=== PATIENT | female | born 1945 | race Caucasian/White ===

== ENCOUNTER 2024-09-26 05:52 | Day surgery (SDC) | payer MEDICARE, OTHER, SELFPAY ==
[2024-09-13 13:51] VITALS: BMI 24.3
[2024-09-26] VITALS (23 sets, daily range): BP systolic 85–202; BP diastolic 51–88; BMI 24.3
[2024-09-26] MEDS: NSS 500 IV (06:26)
[2024-09-26 08:37] LABS: ACT-LR - POC 334 Seconds (116-155)
[2024-09-26 08:52] LABS: ACT-LR - POC 284 Seconds (116-155)
--- NOTE | 2024-09-26 09:39 | ITS.CL.ABL ---
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
Ablation
Procedure Report:
ELECTROPHYSIOLOGIC STUDY AND POSSIBLE ABLATION
DATE: September 26, 2024
Primary Care Provider: MITZI Manzanares
Primary Smearer: Julita Kyle M.D.
INDICATION:
Symptomatic Atrial Fibrillation.
Paroxysmal
HISTORY: See H and P.
Symptomatic AF, poorly controlled with attempted medical therapy.
Hypertrophic cardiomyopathy as well as baseline sinus bradycardia / sick sinus syndrome with chronotropic incompetence, both conditions limiting antiarrhythmic drug therapy.
HAS-BLED:
Age
CHADSVASc: 4
HTN
Age
F Gender
* Also with Hypertrophic Cardiomyopathy
PRESENTING RHYTHM: SR with paroxysms of AF
HISTORY: See H and P.
Symptomatic AF, poorly controlled with attempted medical therapy.
ANTICOAGULATION: Eliquis 5 mg twice daily
'TIME-OUT': called and confirmed.
SEDATION/ANESTHESIA: provided via the anesthesia department using general anesthesia.
PROCEDURE:
Ultrasound Guidance performed by oh was utilized for femoral venous Vascular Access b/l.
A decapolar CS catheter was placed within the CS for mapping and pacing.
The intracardiac ultrasound catheter was positioned in the RA for continuous intracardiac ultrasound imaging.
Heparin bolus and infusion to target ACT at 300 -350 seconds was administered. Transseptal puncture was performed. This entailed advancing a sheath with dilator into the superior vena cava and withdrawing both (monitoring intracardiac ultrasound,
fluoroscopy and tip pressure) with the tip oriented toward the atrial septum. The fossa ovalis was engaged (indicated by sudden displacement of the sheath tip as well as tenting of the fossa seen on intracardiac ultrasound).
The [employer] transseptal system was used. Left atrial catheter position was confirmed by echocardiographic imaging and fluoroscopy followed by RF delivery using the GI Track system resulting in successful LA access with pressure monitoring
demonstrating LA pressure waveforms (LA mean pressure 8 mm Hg). The sheath was advanced over the dilator and positioned in the left atrium.
The Gentronix multipolar mapping catheter was initially positioned through the transseptal sheath for high density mapping.
Geometry and voltage mapping was performed using the Vericant multipolar grid catheter. Ensite-X was utilized for three-dimensional electroanatomical mapping.
A 3-D map was created using Ensite-X in Voxel mode. A 3-D reconstructed CT image was compared to the 3-D Navex map to assist in anatomic evaluation, mapping and ablation.
The Follicum catheter and system was used for cardiac ablation. Catheter positioning was guided and confirmed using both I.C.E. and fluoroscopy.
PV isolation approach was used to electrically isolate each PV ostia (LSPV, LIPV, RSPV, RIPV).
Additional energy applications/additional ablation set was required to accomplish wide area circumferential ablation around each of the pulmonary vein sets and additionally ablation to accomplish LA posterior wall ablation.
Remapping with the Ambrocio multipolar grid catheter found that all PVPs were eliminated at each vein demonstrating entrance block. Also pacing from the multipolar mapping catheter around the the circumference of the ostia was performed at 10 ma and
2.0 msec output to assess for exit block. This demonstrated electrical isolation at each of the pulmonary vein ostia (LSPV, LIPV, RSPV, RIPV). There is also entrance and exit block at the LA posterior wall.
Programmed electrostimulation failed to induce any sustained arrhythmias.
I.C.E. :
Pre-Ablation Post-Ablation
LVEF: 55 % 55 %
WMA: None None
Pericardial effusion: Trace posterior Trace posterior
COMPLICATIONS:
None
SUMMARY:
- Mapping and ablation to isolate the PVs
- Additional AF ablation set after PVI.
- 3-D Electroanatomical Mapping
- Intracardiac Ultrasound
RECOMMENDATIONS:
- Observe in monitored bed.
- Maintain oral anticoagulation.
- Continue Eliquis 5 mg twice daily
- Office visit with me in 3 months.
- Continue cardiovascular care with with Dr. Julita Kyle
Copy to:
MITZI Manzanares
Julita Kyle M.D.
--- NOTE | 2024-09-26 12:13 | CM ---
Chart reviewed. Patient is independent of ADLS, lives alone in a 2 [address], 3 [facility], 0 DME. Plan is for the patient to return home. CM to follow
--- NOTE | 2024-09-26 12:58 | PTCARENOTE ---
Received pt from [employer] [facility] @ [id number]. Pt is AAOx3 SR 1st degree AVB. VSS right groin dressing old blood with ecchymosis. No hematoma present distal pulse palpable. Pt aware of post abilation instructions. Figure 8 sutures will remove 4908.
[2024-09-26] MEDS: TYLENOL 650 MG PO (13:17)
--- NOTE | 2024-09-26 17:17 | PTCARENOTE ---
Pt c/o pins and needle feeling in hands and right toes earlier today but since have resolved.
[2024-09-26] MEDS: ELIQUIS 5 MG PO (19:21)
[2024-09-26] MEDS: BYSTOLIC PO (19:22)
[2024-09-26] MEDS: NSS IV (20:36)
--- NOTE | 2024-09-26 22:35 | PTCARENOTE ---
Pt rec'd at change of shift in bed. Right femoral site, ecchymotic but soft. Pulses by Doppler. Sinus with first degree block on telemetry. At change of shift pt stated she had tingling in fingers and feet coming and going. Pt reports having this at
home too. B/p at change of shift 85/51 in right arm,
92/58 in left arm. Bystolic dose held. B/P repeated at 5 104/53.
[2024-09-26] MEDS: MUCINEX 600 MG PO (23:06)
--- NOTE | 2024-09-26 23:10 | PTCARENOTE ---
Pt with c/o slight dry cough. Pt reports feeling as if she has phlegm that shes unable to get up. PA made aware dose of Mucinex ordered and given.
[2024-09-27 05:26] VITALS: BMI 24.5
[2024-09-27 05:29] VITALS: BP 105/59
[2024-09-27 06:30] LABS: Hematocrit 33.2 % (37.0-47.0); Hemoglobin 11.8 g/dL (12.0-16.0); Mean Corp Hgb Conc. 35.5 g/dL (33.0-37.0); Mean Corpuscular Hgb 32.2 pg (27.0-31.0); Mean Corpuscular Volume 90.5 fL (81.0-99.0); Mean Platelet Volume 10.3 fL (7.4-10.4); Platelet Count 458 10^3/uL (130-400); Red Blood Cell Count 3.67 10^6/uL (4.20-5.40); Red Cell Dist. Width 13.9 % (11.5-14.5); White Blood Cell Count 13.9 10^3/uL (4.8-10.8)
[2024-09-27 06:54] VITALS: BP 106/53
[2024-09-27 06:55] LABS: Blood Urea Nitrogen 31 mg/dl (7-17); Carbon Dioxide 25 mmol/L (22-30); Chloride 101 mmol/L (98-107); Estimated Creatinine Clearance 45 ml/min; Glucose 105 mg/dl (70-99); Magnesium 2.1 mg/dl (1.6-2.3); Potassium 4.2 mmol/L (3.5-5.1); Sodium 135 mmol/L (135-145); eGFR > 60.00
[2024-09-27] MEDS: BYSTOLIC 20 MG PO (08:42)
[2024-09-27] MEDS: ELIQUIS 5 MG PO (08:43)
[2024-09-27] MEDS: LIPITOR 10 MG PO (08:43)
[2024-09-27] MEDS: MUCINEX 600 MG PO (08:43)
[2024-09-27 09:20] VITALS: BP 115/56
--- NOTE | 2024-09-27 09:31 | W.PN.CARDCBS ---
Addendum entered and electronically signed by Juarez Elias MD 09/27/24 10:19:
Patient seen and examined
Agree with FLEET SERVICE MANAGER note and assessment
Agree with FLEET SERVICE MANAGER plan
Examination:
As per FLEET SERVICE MANAGER note
Telemetry sinus rhythm
No acute distress
Alert and orient x 3
Nonfocal neurologically
Cor regular
78 y/o, presents with symptomatic AF, poorly controlled with attempted medical therapy. Hypertrophic cardiomyopathy as well as baseline sinus bradycardia / sick sinus syndrome with chronotropic incompetence, both conditions limiting antiarrhythmic
drug therapy.
[id number]-LHQo=3, maintained on eliquis.
S/P PVI w/PFA, LAPW ablation.
IMPRESSION:
Symptomatic AFib
s/p PVI w/PFA, LAPW ablation, 09/26/24
HOCM, EF 64%
Sinus bradycardia/SSS
Chronotropic incompetence
HTN
HLD
Non obstructive CAD
Edema
PLAN:
Tele- NSR, no arrhythmia
Groin site stable
Resume eliquis last evening
BP soft overnight 90-110s
Did get bystolic this morning- will hold tonight's dose and resume in AM
Decrease valsartan to 80mg- hold today and resume in AM
Stop HCTZ
She has BP cuff at home and can monitor
Followup with Dr. Cancino as scheduled in early October
Home today
Original Note:
Today's Communication / Plan
-
Hold bystolic until AM
decrease valsartan to 80/d and resume in AM
stop hctz
followup in 3 weeks
home today
Impression / Plan
-
PCP: MITZI Manzanares
CDY: Julita Kyle MD
78 y/o, presents with symptomatic AF, poorly controlled with attempted medical therapy. Hypertrophic cardiomyopathy as well as baseline sinus bradycardia / sick sinus syndrome with chronotropic incompetence, both conditions limiting antiarrhythmic
drug therapy.
[id number]-PGQs=2, maintained on eliquis.
S/P PVI w/PFA, LAPW ablation.
IMPRESSION:
Symptomatic AFib
s/p PVI w/PFA, LAPW ablation, 09/26/24
HOCM, EF 64%
Sinus bradycardia/SSS
Chronotropic incompetence
HTN
HLD
Non obstructive CAD
Edema
PLAN:
Tele- NSR, no arrhythmia
Groin site stable
Resume eliquis last evening
BP soft overnight 90-110s
Did get bystolic this morning- will hold tonight's dose and resume in AM
Decrease valsartan to 80mg- hold today and resume in AM
Stop HCTZ
She has BP cuff at home and can monitor
Followup with Dr. Cancino as scheduled in early October
Home today
Progress Note - Coil Former
Subjective
Date of Service: September 27, 2024
Denies cp/palps/dyspnea
groin site tender
oob ambulating
Objective
Labs:
09/27/24 05:37
09/27/24 05:37
Labs
Hgb 11.8 g/dL (12.0-16.0) L 09/27/24 05:37
Hct 33.2 % (37.0-47.0) L 09/27/24 05:37
Plt Count 458 10^3/uL (130-400) H 09/27/24 05:37
PT Cancelled 09/13/24 13:01
INR Cancelled 09/13/24 13:01
Sodium 135 mmol/L (135-145) 09/27/24 05:37
Potassium 4.2 mmol/L (3.5-5.1) 09/27/24 05:37
BUN 31 mg/dl (7-17) H 09/27/24 05:37
Creatinine 0.8 mg/dL (0.6-1.0) 09/27/24 05:37
Glucose 105 mg/dl (70-99) H 09/27/24 05:37
Vital Signs and I&O:
Vital Signs
Temp Pulse Resp BP Pulse Ox
98.0 F 57 16 11556 98
09/27/24 06:56 09/27/24 09:20 09/27/24 06:56 09/27/24 09:20 09/27/24 08:00
Vital Signs
Temp Pulse Resp BP Pulse Ox
98.0 F 57 16 11556 98
09/27/24 06:56 09/27/24 09:20 09/27/24 06:56 09/27/24 09:20 09/27/24 08:00
Intake & Output
09/25/24 09/26/24 09/27/24 09/28/24
06:59 06:59 06:59 06:59
Intake Total 1000 / 1000
Balance 1000 / 1000
Physical Exam
Physical Exam
AAOx3, MAEE 5/5
RRR S1 S2 no murmurs
CTA bilat, non labored
soft abd, + bs
right groin with moderate ecchymosis, tender to palpation but soft, no ht/bleeding, no bruit
bilat extremities w/palpable distal pulses, no edema
--- NOTE | 2024-09-27 09:38 | W.DS.TRANS ---
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
-
Discharge Instructions:
Discharge Diagnosis/Procedures AFib, s/p ablation
Diet Low Cholesterol
Driving Restrictions No driving for 24 hours
Instructions:
Stand-Alone Forms: DC Instructions- Cath/EP Lab
Changes to Home Medications: Yes
Discharge Medications:
DC Medications w/original date entered in [employer]
apixaban 5 mg tablet (Eliquis) 5 mg PO BID 09/09/24
atorvastatin 10 mg tablet 10 mg PO DAILY 09/09/24
cholecalciferol (vitamin D3) 50 mcg (2,000 unit) capsule (Vitamin D3) 50 mcg PO DAILY 09/09/24
multivitamin 1 tab PO DAILY 09/09/24
nebivolol 20 mg tablet (Bystolic) 20 mg PO BID 09/09/24
acetaminophen 325 mg tablet (Tylenol) 325 mg PO ONCE PRN Headache/knee pain 09/26/24
valsartan 80 mg tablet 80 mg PO DAILY #90 tabs 09/27/24
Home Medication Changes
STOP hydrochlorothiazide
DECREASE valsartan
Pending Results: No
--- NOTE | 2024-09-27 09:39 | PTCARENOTE ---
Pt received this am ambulating in the room and hallway. Denies any pain or discomfort. Right groin site dressing dry and intact, site soft but ecchymotic.
[2024-09-27 10:37] VITALS: BP 108/54
[2024-09-27] MEDS: NSS IV (10:43)
--- NOTE | 2024-09-27 11:02 | PTCARENOTE ---
Pt discharged to home with her friend. Discharge instructions given and reviewed with good understanding.
== END 2024-09-27 11:14 | disposition home or self-care (01) ==
LOC: CATH 05:52
PROVIDERS: Nurse Practitioner; ATTENDING PHYSICIAN Internal Medicine Cardiovascular Disease; FAMILY PHYSICIAN Physician Assistant Medical; OTHER PHYSICIAN Internal Medicine Cardiovascular Disease
DX: I48.0 Paroxysmal atrial fibrillation (principal); I42.1 Obstructive hypertrophic cardiomyopathy; I49.5 Sick sinus syndrome; I10 Essential (primary) hypertension; M19.90 Unspecified osteoarthritis, unspecified site; M85.80 Other specified disorders of bone density and structure, unspecified site; E78.5 Hyperlipidemia, unspecified; Z79.01 Long term (current) use of anticoagulants; Z79.899 Other long term (current) drug therapy
CPT/HCPCS: C1732; C1730; C1892; C1759; C1894; 36415; 80048; 83735; 85027; 85347; 86900; 86901; 93005; 93656; 93657; C1733; C1766

== ENCOUNTER 2024-10-03 15:59 | Emergency (ER) | payer MEDICARE, OTHER, SELFPAY ==
[2024-10-03 16:10] VITALS: BP 175/81
[2024-10-03 16:36] LABS: % Basophils 1.2 % (0-2); % Eosinophils 3.1 % (0-6); % Immature Granulocytes 0.6 % (0-0.5); % Lymphocytes 22.6 % (20.5-51.1); % Monocytes 7.7 % (1.7-9.3); % Neutrophils 64.8 % (42.2-75.2); Absolute Basophils 0.1 10^3/uL (0-0.2); Absolute Eosinophils 0.3 10^3/uL (0-0.7); Absolute Immature Granulocytes 0.1 10^3/uL (0-0.05); Absolute Lymphocytes 1.9 10^3/uL (1.2-3.4); Absolute Monocytes 0.7 10^3/uL (0.1-0.6); Absolute Neutrophils 5.5 10^3/uL (1.4-6.5); Hematocrit 36.5 % (37.0-47.0); Hemoglobin 12.2 g/dL (12.0-16.0); Mean Corp Hgb Conc. 33.4 g/dL (33.0-37.0); Mean Corpuscular Hgb 31.9 pg (27.0-31.0); Mean Corpuscular Volume 95.3 fL (81.0-99.0); Mean Platelet Volume 9.8 fL (7.4-10.4); Nucleated Red Blood Cells % 0 %; Platelet Count 535 10^3/uL (130-400); Red Blood Cell Count 3.83 10^6/uL (4.20-5.40); Red Cell Dist. Width 14.1 % (11.5-14.5); White Blood Cell Count 8.4 10^3/uL (4.8-10.8)
[2024-10-03 16:48] LABS: Blood Urea Nitrogen 21 mg/dl (7-17); Calcium 9.3 mg/dl (8.4-10.2); Carbon Dioxide 24 mmol/L (22-30); Chloride 106 mmol/L (98-107); Glucose 96 mg/dl (70-99); PT 14.5 Sec (11.4-14.6); Potassium 4.5 mmol/L (3.5-5.1); Sodium 142 mmol/L (135-145); eGFR > 60.00
[2024-10-03 16:49] LABS: APTT 34.3 Sec (23.4-35.0)
--- NOTE | 2024-10-03 16:57 | ED.GENMED ---
History of Present Illness
General
Chief Complaint: Vascular Access Problem
Source: patient and records
Exam Limitations: none
Time Seen by Provider: 10/03/24 16:29
Nursing documentation reviewed up to this point in time: agreed with
History of Present Illness
History of Present Illness:
78-year-old female referred from cardiology due to bruising and swelling in the right groin she is status post ablation about a week ago she is on Eliquis 5 twice daily she sees Dr. Kyle no chest pain or shortness of breath no trauma no heavy
lifting no recurrent arrhythmia
Past History
Past History
ED Past Medical History: Arrthythmia
ED Past Surgical History: Cardiac
Social History
Tobacco: Non-smoker
Drug: None
Personal:
Living: with family
Employment: Retired
Review of Systems
Review of Systems
All Other Systems: Not applicable
Respiratory: Reports no symptoms
Cardiac: Reports no symptoms
ABD/GI: Reports no symptoms
Hematologic/Lymphatic: Reports bruising
Phy Exam
Physical Exam
Physical Exam:
Physical Exam
General: no apparent distress, not acutely ill
Neck: No jaundice
Heart: Regular
Lungs: no acute respiratory distress. clear bilaterally
Abdomen: brusing right grown
Neuro: alert and oriented. no focal neurological deficits
Skin: no rash
Psychiatric: well kept. interactive and cooperative
Extremities: no edema.
Course
Orders/Labs/Results
Orders:
Orders
10/03/24 16:22
US Groin (vascular exam) RT Urgent
Reason For Exam: pseudoaneurysm
10/03/24 16:23
Type+Screen Urgent
Basic Metabolic Panel Urgent
Complete Blood Count/With Diff Urgent
PTT Urgent
Prothrombin Time Urgent
Abnormal Lab Results
10/03/24
16:23
RBC 3.83 L 10^6/uL
(4.20-5.40)
Hct 36.5 L %
(37.0-47.0)
MCH 31.9 H pg
(27.0-31.0)
Plt Count 535 H 10^3/uL
(130-400)
Abs Immat Gran (auto) 0.1 H 10^3/uL
(0-0.05)
Absolute Monos (auto) 0.7 H 10^3/uL
(0.1-0.6)
Immature Gran % 0.6 H %
(0-0.5)
BUN 21 H mg/dl
(7-17)
10/03/24 16:23
10/03/24 16:23
Vital Signs
Initial and Last Documented VS:
Initial Vital Signs
Temp Pulse Resp BP Pulse Ox
98.1 F 71 19 175/81 99
10/03/24 16:10 10/03/24 16:10 10/03/24 16:10 10/03/24 16:10 10/03/24 16:10
Last Documented Vital Signs
Temp Pulse Resp BP Pulse Ox
98.1 F 68 16 155/76 98
10/03/24 16:10 10/03/24 18:08 10/03/24 18:08 10/03/24 18:08 10/03/24 18:08
MDM/Problems Addressed
Differential Diagnosis Includes:
Postop hematoma aneurysm pseudoaneurysm
MDM/Problems Addressed:
Bruising
Chronic conditions affecting care:
Status post PVI
Chronic conditions affecting care: Arrhythmia
Acute Exacerbation and/or Progression of Chronic Illness: Arrhythmia
*Radiology
Radiology exam reviewed: radiology read reviewed
*Pulse Oximetry
Patient hypoxic: no
*Critical Care Note
Total Time (30-74mins, 75-104mins- exclusive of procedures): Not Applicable
Update Note
Update Note:
Update ultrasound verbal report no pseudoaneurysm
ED Attending Note
-
Portions of this chart may have been created with voice recognition software.� Occasional wrong word or��sound alike� substitutions may have occurred due to the inherent limitations of voice recognition software.
Discharge Plan
Departure
Patient Disposition: Home (Routine Discharge)
Date of Disposition: 10/03/24
Time of Disposition: 19:09
Patient with high blood pressure during this ER visit?: No
Condition: Good
Covid-19: Not Applicable
Discharge Problem:
Post procedure bruising
Prescriptions:
No Action
multivitamin Tablet
1 tab PO DAILY
atorvastatin 10 mg Tablet
10 mg PO DAILY
cholecalciferol (vitamin D3) [Vitamin D3] 50 mcg (2,000 unit) Capsule
50 mcg PO DAILY
nebivolol [Bystolic] 20 mg Tablet
20 mg PO BID
Eliquis 5 mg Tablet
5 mg PO BID
acetaminophen [Tylenol] 325 mg Tablet
325 mg PO ONCE PRN (Reason: Headache/knee pain)
valsartan 80 mg tablet
80 mg PO DAILY Qty: 90 3RF
Referrals:
Alexey Fatima PA-C [Family Provider] -
Activity Restrictions/Additional Instructions:
No heavy lifting
Follow-up with your environmental science instructor
Interventions
Interventions:
*Risk Screen - Suicide Last Done: 10/03/24 16:12
*General Assessment Last Done: 10/03/24 16:13
*Neglect/Abuse Screening Last Done: 10/03/24 16:12
ED- Fall Risk Assessment Last Done: 10/03/24 16:59
*ED COVID-19 Vaccine History Last Done: 10/03/24 16:13
Discharge Date and Time
Print Language: [place]ET[place]ESE
[2024-10-03 16:59] VITALS: BMI 25.1
[2024-10-03 17:01] VITALS: BP 173/69
--- NOTE | 2024-10-03 17:04 | EDRN ---
[place] go [place].
--- NOTE | 2024-10-03 17:05 | EDRN ---
Bilateral femoral pulses +2 on palpation. Pt states bruising was present post procedure, not worse and starting to disappear slightly though she is concerned about hard area noted in R groin.
[2024-10-03 18:08] VITALS: BP 155/76
[2024-10-03 19:28] VITALS: BP 146/66
== END 2024-10-03 19:40 | disposition home or self-care (01) ==
LOC: EMR 15:59
PROVIDERS: Physician Assistant Medical; EMERGENCY PHYSICIAN Emergency Medicine; FAMILY PHYSICIAN Physician Assistant Medical
DX: L76.32 Postprocedural hematoma of skin and subcutaneous tissue following other procedure (principal); Y83.8 Other surgical procedures as the cause of abnormal reaction of the patient, or of later complication, without mention of misadventure at the time of the procedure; Z79.01 Long term (current) use of anticoagulants
CPT/HCPCS: 99284; 80048; 85025; 85610; 85730; 86850; 86900; 86901; 93926

== ENCOUNTER → 2024-10-20 15:18 | Outpatient (REF) | payer MEDICARE, OTHER, SELFPAY | LOC: RAD 15:18 | PROVIDERS: ATTENDING PHYSICIAN Physician Assistant Medical | DX: E04.1 Nontoxic single thyroid nodule (principal) | CPT/HCPCS: 76536 ==

== ENCOUNTER → 2025-02-03 15:47 | Outpatient (REF) | payer MEDICARE, OTHER, SELFPAY | LOC: RAD 15:47 | PROVIDERS: ATTENDING PHYSICIAN Student in an Organized Health Care Education/Training Program; FAMILY PHYSICIAN Physician Assistant Medical | DX: R60.0 Localized edema (principal) | CPT/HCPCS: 93971 ==

== ENCOUNTER → 2025-09-14 14:42 | Outpatient (REF) | payer MEDICARE, OTHER, SELFPAY | LOC: REG 14:42 | PROVIDERS: ATTENDING PHYSICIAN Nurse Practitioner Adult Health; FAMILY PHYSICIAN Physician Assistant Medical | DX: D47.3 Essential (hemorrhagic) thrombocythemia (principal) | CPT/HCPCS: 71046 ==